=== PATIENT | female | born 1970 | race African-American/Black ===

== ENCOUNTER 2016-11-24 10:25 | Emergency (ER) | payer SELFPAY ==
[2016-11-24 10:30] VITALS: BP 187/85; BMI 27.6
--- NOTE | 2016-11-24 10:59 | DR.GENAD ---
HPI - PCP Primary Care Physician: none - HPI Comment HPI Comment: SUBSTERNAL CHEST PAIN AT WORK. WORSE GOR 15MIN AND RESOLVE. NO EPISODE SINCE. NO TRAUMA. NO URI SYMTOMS. HAVE HAD HEART BURN ON AND OFF. - Complaint/Symptoms Chief Complaint Doctors Comments: CHEST PAIN Chief Complaint:: "Hurting in chest for about 15 min while at work today" - Nurses notes reviewed Nurses Notes Review: Yes - Source History Provided: Patient - Mode of Arrival Mode of Arrival: Ambulatory - Timing Onset of Chief Complaint: 11/24/16 Came on: Suddenly - Duration Duration: Intermittent Duration: Hours - Severity Severity: Moderate PMH - PMH Past Medical History: No Past Surgical History: Yes Past Surgical History Comment: tubal - Family History History of Family Medical Conditions: Yes Family Medical History: Heart Failure - Social History Does patient currently use any type of tobacco product: No Have you used tobacco products in the last 12 months: No Type of Tobacco Use: None Does any household member use tobacco: No Alcohol Use: None Do you use any recreational Drugs:: No Lives With: Family Lives Where: Home - infectious screening In the last 2 months have you had wt loss of >10#?: NO Have you had fever, night sweats or hemotysis?: No Have you traveled outside the country in the last 6 months?: No Isolation: Standard ROS - Review of Systems Constitutional: No Symptoms Reported Eyes: No Symptoms Reported ENTM: No Symptoms Reported Respiratoy: No Symptoms Reported Cardiovascular: Chest Pain. negative: Palpitations, Syncope Gastrointestinal/Abdominal: Nausea. negative: Abdominal Pain Genitourinary: No Symptoms Reported Neurological: No Symptoms Reported Musculoskeletal: Muscle Pain Integumentary: No Symptoms Reported Hematologic/Lymphatic: No Symptoms Reported Endocrine: No Symptoms Reported All Other Systems: Reviewed and Negative PE - Vital Signs Vitals: Temperature 98 F Pulse Rate 90 Respiratory Rate 18 Blood Pressure 187/85 O2 Sat by Pulse Oximetry 100 - General Limitations: No Limitations General Appearance: Alert - Head Head Exam: Normal Inspection - Eyes Eye exam: Normal Appearance - ENT ENT Exam: Normal External Ear Exam External Ear Exam: Normal External Inspection TM/Canal Exam: Bilateral Normal Nose Exam: Normal Nose Exam Mouth Exam: Normal Inspection Throat Exam: Normal Inspection - Neck Neck Exam: Trachea Midline - Chest Chest Inspection: Symmetric Chest Wall Rise - Respiratory Respiratory Exam: Normal Lung Sounds Bilat Respiratory Exam: Bilateral Clear to Auscultation - Cardiovascular Cardiovascular Exam: Regular Rate, Normal Rhythm, Normal Heart Sounds - Abdominal Exam Abdominal Exam: Normal Bowel Sounds - Extremities Extremities Exam: Normal Inspection - Back Back Exam: Paraspinal Tenderness - Neurologic Neurological Exam: Alert, Oriented X3 - Psychiatric Psychiatric Exam: Normal Affect, Normal Mood - Skin Skin Exam: Normal Color MDM - Differential Diagnosis Differential Diagnosis: CHEST PAIN ROR - Labs Reviewed Result Diagrams: 11/24/16 11:17 11/24/16 11:17 Laboratory: WBC 7.2 X10^3/uL (3.6-10.0) 11/24/16 11:17 RBC 4.33 X10^6/uL (3.5-5.4) 11/24/16 11:17 Hgb 11.3 g/dL (12.0-16.0) L 11/24/16 11:17 Hct 33.8 % (36.0-47.0) L 11/24/16 11:17 MCV 78.1 fL (80.0-100.0) L 11/24/16 11:17 MCH 26.1 pg (27.0-34.0) L 11/24/16 11:17 MCHC 33.5 g/dL (33.0-35.0) 11/24/16 11:17 RDW 14.1 % (11.6-16.5) 11/24/16 11:17 Plt Count 349 X10^3/uL (150.0-450.0) 11/24/16 11:17 MPV 7.5 fL (7.4-11.0) 11/24/16 11:17 Neut % 47.8 % (42.0-75.0) 11/24/16 11:17 Lymph % 43.6 % (21.0-51.0) 11/24/16 11:17 Gray % 6.0 % (0.0-13.0) 11/24/16 11:17 Eos % 1.5 % (0.9-2.9) 11/24/16 11:17 Baso % 1.1 % (0.2-1.0) H 11/24/16 11:17 Neut # 3.4 x10^3/uL (2.2-4.8) 11/24/16 11:17 Lymph # 3.2 X10^3/uL (1.3-2.9) H 11/24/16 11:17 Gray # 0.4 x10^3/uL (0.3-0.8) 11/24/16 11:17 Eos # 0.1 x10^3/uL (0.0-0.2) 11/24/16 11:17 Baso # 0.1 X10^3/uL (0.0-0.1) 11/24/16 11:17 Absolute Nucleated RBC 0.1 /100WBC 11/24/16 11:17 Sodium 141 mmol/L (136-145) 11/24/16 11:17 Corrected Sodium TNP 11/24/16 11:17 Potassium 4.2 mmol/L (3.5-5.1) 11/24/16 11:17 Chloride 107 mmol/L (98-107) 11/24/16 11:17 Carbon Dioxide 27.8 mmol/L (21-32) 11/24/16 11:17 BUN 12 mg/dL (7-18) 11/24/16 11:17 Creatinine 0.68 mg/dL (0.55-1.02) 11/24/16 11:17 Est GFR (MDRD) Af Amer > 60 (>60) 11/24/16 11:17 Est GFR (MDRD) Non-Af > 60 (>60) 11/24/16 11:17 Glucose 90 mg/dL (65-99) 11/24/16 11:17 Calcium 8.8 mg/dL (8.5-10.1) 11/24/16 11:17 Corrected Calcium TNP 11/24/16 11:17 Total Bilirubin 0.50 mg/dL (0.2-1.0) 11/24/16 11:17 AST 19 Units/L (15-37) 11/24/16 11:17 ALT 18 Units/L (12-78) 11/24/16 11:17 Alkaline Phosphatase 50 Units/L (46-116) 11/24/16 11:17 Creatine Kinase 161 Units/L (26-192) 11/24/16 11:17 CK-MB (CK-2) < 1.0 ng/mL (0-4.0) 11/24/16 11:17 CK/CKMB % Calc 0.6 % (<4) 11/24/16 11:17 Troponin I < 0.02 ng/mL (0-1.5) 11/24/16 11:17 Total Protein 7.4 g/dL (6.4-8.2) 11/24/16 11:17 Albumin 3.5 g/dL (3.4-5.0) 11/24/16 11:17 Globulin 3.9 g/dL (2.5-4.5) 11/24/16 11:17 Albumin/Globulin Ratio 0.9 Ratio (1.1-2.1) L 11/24/16 11:17 - Diagnosis Discharge Problem: Chest pain - Discharge Plan Disposition: 01 HOME, SELF-CARE Condition: Stable - Follow ups/Referrals Follow ups/Referrals: [facility],None [Primary Care Provider] - 3 days Mathieu Hernandez [STAFF PHYSICIAN] - 2 days - Instructions Instructions: Chest Pain Observation Additional Instructions: RETURN TO ED IF WORSE.
[2016-11-24 11:23] LABS: BASOPHILS # (AUTO) 0.1 X10^3/uL (0.0-0.1); BASOPHILS % (AUTO) 1.1 % (0.2-1.0); EOSINOPHILS # (AUTO) 0.1 x10^3/uL (0.0-0.2); EOSINOPHILS % (AUTO) 1.5 % (0.9-2.9); HEMATOCRIT 33.8 % (36.0-47.0); HEMOGLOBIN 11.3 g/dL (12.0-16.0); LYMPHOCYTES # (AUTO) 3.2 X10^3/uL (1.3-2.9); LYMPHOCYTES % (AUTO) 43.6 % (21.0-51.0); MEAN CORPUSCULAR HEMOGLOBIN 26.1 pg (27.0-34.0); MEAN CORPUSCULAR HGB CONC 33.5 g/dL (33.0-35.0); MEAN CORPUSCULAR VOLUME 78.1 fL (80.0-100.0); MEAN PLATELET VOLUME 7.5 fL (7.4-11.0); MONOCYTES # (AUTO) 0.4 x10^3/uL (0.3-0.8); NEUTROPHILS # (AUTO) 3.4 x10^3/uL (2.2-4.8); NEUTROPHILS % (AUTO) 47.8 % (42.0-75.0); PLATELET COUNT 349 X10^3/uL (150.0-450.0); RED BLOOD COUNT 4.33 X10^6/uL (3.5-5.4); RED CELL DISTRIBUTION WIDTH 14.1 % (11.6-16.5); WHITE BLOOD COUNT 7.2 X10^3/uL (3.6-10.0)
--- NOTE | 2016-11-24 11:32 | RAD ---
Examination: Chest x-ray. Clinical history: Chest pain. Technique: A single portable AP view of the chest was obtained. Comparison: None available. Findings: The cardiac silhouette appears borderline enlarged. The cardiac silhouette size may be accentuated by the AP projection. No pneumothorax or pleural effusion is noted. The lungs appear clear. No acute osseous abnormality is noted. Impression: 1. The cardiac silhouette appears borderline enlarged. The cardiac silhouette size may be accentuated by the AP projection. Reported By:
[2016-11-24 11:40] LABS: BLOOD UREA NITROGEN 12 mg/dL (7-18); CALCIUM 8.8 mg/dL (8.5-10.1); CARBON DIOXIDE 27.8 mmol/L (21-32); CHLORIDE 107 mmol/L (98-107); CREATININE 0.68 mg/dL (0.55-1.02); SODIUM 141 mmol/L (136-145); TROPONIN I < 0.02 ng/mL (0-1.5); eGFR BLACK RACES > 60 (>60); eGFR NON BLACK RACES > 60 (>60)
[2016-11-24 11:44] LABS: ALANINE AMINOTRANSFERASE 18 Units/L (12-78); ALBUMIN 3.5 g/dL (3.4-5.0); ALKALINE PHOSPHATASE 50 Units/L (46-116); ASPARTATE AMINO TRANSFERASE 19 Units/L (15-37); CKMB % 0.6 % (<4); CREATINE KINASE 161 Units/L (26-192); CREATINE KINASE MB < 1.0 ng/mL (0-4.0); TOTAL PROTEIN 7.4 g/dL (6.4-8.2)
== END 2016-11-24 12:13 | disposition home or self-care (01) ==
LOC: ER 10:35
DX: R07.89 Other chest pain (principal)
CPT/HCPCS: 36415; 71010; 80053; 82550; 82553; 84484; 85025; 93005; 93010; 99282; 99283